=== PATIENT | female | born 1970 ===

== ENCOUNTER 2018-11-24 08:16 | Outpatient (CLI) | payer OTHER | END 2018-11-24 08:17 | disposition home or self-care (01) | LOC: C.LAB 08:16 ==

== ENCOUNTER 2018-12-16 13:56 | Outpatient (CLI) | payer OTHER, SELFPAY | END 2018-12-16 13:57 | disposition home or self-care (01) | LOC: C.MAMMO 13:56 | DX: Z12.31 Encounter for screening mammogram for malignant neoplasm of breast (principal) ==

== ENCOUNTER 2019-03-01 08:26 | Outpatient (CLI) | payer OTHER | END 2019-03-01 08:27 | disposition home or self-care (01) | LOC: C.LAB 08:26 | DX: M05.9 Rheumatoid arthritis with rheumatoid factor, unspecified (principal) ==